=== PATIENT | male | born 1965 | race Caucasian/White ===

== ENCOUNTER 2022-02-06 09:51 | Outpatient (CLI) | payer OTHER ==
[2022-02-06] MEDS ORDERED: CHOL400T8 PO (10:27)
[2022-02-06] MEDS ORDERED: ATOR20TA66 PO (10:27)
[2022-02-06 10:44] LABS: BASOPHILS % (AUTO) 0.5 % (0-1); EOSINOPHILS # (AUTO) 0.2 X10'3 (0-0.9); EOSINOPHILS % (AUTO) 2.8 % (0-6); LYMPHOCYTES # (AUTO) 1.7 X10'3 (1.1-4.8); LYMPHOCYTES % (AUTO) 23.2 % (21-51); MEAN CORPUSCULAR HEMOGLOBIN 32.6 PG (27.0-31.0); MEAN CORPUSCULAR HGB CONC 34.7 g/dL (33.0-36.5); MEAN PLATELET VOLUME 7.6 FL (7.4-10.4); MONOCYTES # (AUTO) 0.9 X10'3 (0-0.9); MONOCYTES % (AUTO) 11.8 % (2-12); NEUTROPHILS # (AUTO) 4.6 X10'3 (1.8-7.7); NEUTROPHILS % (AUTO) 61.7 % (42-75); PRE OP HEMATOCRIT 47.6 % (42.0-52.0); PRE OP HEMOGLOBIN 16.5 g/dL (14.0-17.9); PRE OP PLATELET COUNT 298 X10'3 (140-440); RED BLOOD COUNT 5.07 X10'6 (4.70-6.10); RED CELL DISTRIBUTION WIDTH 13.4 % (11.5-14.5)
[2022-02-06 10:56] LABS: ALKALINE PHOSPHATASE 89 IU/L (46-116); BLOOD UREA NITROGEN 21 MG/DL (7-18); BUN/CREATININE RATIO 24.1 (5.4-32.0); CALCIUM 8.8 MG/DL (8.5-10.1); CHLORIDE 107 MMOL/L (99-107); CREATININE 0.87 MG/DL (0.60-1.10); PRE OP ALT 57 U/L (30-65); PRE OP ANION GAP 5 (8-16); PRE OP AST 36 U/L (10-37); PRE OP BILIRUB, TOTAL 0.3 MG/DL (0.0-1.0); PRE OP GLUCOSE 104 MG/DL (70-104); PRE OP POTASSIUM 4.2 MMOL/L (3.4-5.1); PRE OP SODIUM 137 MMOL/L (135-145); TOTAL CARBON DIOXIDE 24.7 MMOL/L (24-32); TOTAL PROTEIN 8.2 G/DL (6.4-8.2); eGFR > 90 ML/MIN
== END 2022-02-06 23:59 | disposition home or self-care (01) ==
LOC: LAB 09:51 → EDSTATUS 02-07 13:15
PROVIDERS: ATTEND Orthopaedic Surgery
DX: Z01.818 Encounter for other preprocedural examination (principal); M17.11 Unilateral primary osteoarthritis, right knee; S83.281A Other tear of lateral meniscus, current injury, right knee, initial encounter; Z20.822 Contact with and (suspected) exposure to COVID-19; X58.XXXA Exposure to other specified factors, initial encounter; Y92.89 Other specified places as the place of occurrence of the external cause; Y93.89 Activity, other specified; Y99.8 Other external cause status
CPT/HCPCS: 36415; 80053; 85025; 87635; 93005; C9803

== ENCOUNTER 2022-02-26 05:29 | Day surgery (SDC) | payer OTHER ==
[2022-02-19 13:35] LABS: BASOPHILS % (AUTO) 0.6 % (0-1); EOSINOPHILS # (AUTO) 0.2 X10'3 (0-0.9); EOSINOPHILS % (AUTO) 2.6 % (0-6); LYMPHOCYTES # (AUTO) 1.7 X10'3 (1.1-4.8); LYMPHOCYTES % (AUTO) 25.3 % (21-51); MEAN CORPUSCULAR HEMOGLOBIN 31.7 PG (27.0-31.0); MEAN CORPUSCULAR HGB CONC 33.9 g/dL (33.0-36.5); MEAN CORPUSCULAR VOLUME 93.4 FL (78-98); MEAN PLATELET VOLUME 7.6 FL (7.4-10.4); MONOCYTES # (AUTO) 0.8 X10'3 (0-0.9); MONOCYTES % (AUTO) 11.9 % (2-12); NEUTROPHILS # (AUTO) 4.1 X10'3 (1.8-7.7); NEUTROPHILS % (AUTO) 59.6 % (42-75); PRE OP HEMATOCRIT 47.9 % (42.0-52.0); PRE OP HEMOGLOBIN 16.2 g/dL (14.0-17.9); PRE OP PLATELET COUNT 286 X10'3 (140-440); RED BLOOD COUNT 5.13 X10'6 (4.70-6.10); RED CELL DISTRIBUTION WIDTH 13.1 % (11.5-14.5)
[2022-02-19 15:01] LABS: ALBUMIN 3.7 G/DL (3.4-5.0); ALBUMIN/GLOBULIN RATIO 0.9 (1.1-1.5); ALKALINE PHOSPHATASE 81 IU/L (46-116); BLOOD UREA NITROGEN 14 MG/DL (7-18); CALCIUM 9.2 MG/DL (8.5-10.1); CHLORIDE 103 MMOL/L (99-107); CREATININE 1.08 MG/DL (0.60-1.10); PRE OP ALT 41 U/L (30-65); PRE OP ANION GAP 10 (8-16); PRE OP AST 24 U/L (10-37); PRE OP BILIRUB, TOTAL 0.4 MG/DL (0.0-1.0); PRE OP GLUCOSE 100 MG/DL (70-104); PRE OP POTASSIUM 3.9 MMOL/L (3.4-5.1); PRE OP SODIUM 139 MMOL/L (135-145); TOTAL CARBON DIOXIDE 26.1 MMOL/L (24-32); TOTAL PROTEIN 7.6 G/DL (6.4-8.2); eGFR 71 ML/MIN
[2022-02-26] VITALS (7 sets, daily range): BP systolic 127–141; BP diastolic 79–89
[~2022-02-26] VITALS: Ht 180.3 cm; Wt 118.2 kg
[~2022-02-26 05:29] MED LIST: ATOR20TA66 PO; CHOL400T8 PO; ringers solution, lacted 1,000 ML IV SCH
[2022-02-26] MEDS ORDERED: famotidine 20mg tablet PO ONE (05:30)
[2022-02-26] MEDS ORDERED: cefazolin/dext.iso 2gm/50ml IV ONE (05:30)
[2022-02-26] MEDS ORDERED: vancomycin/NS 1 GM in NS 250 ML IV ONE (05:30)
--- NOTE | 2022-02-26 05:45 | NUR ---
PT PREPPED FOR SURGERY, IV STARTED WITHOUT DIFFICULTY, VANCOMYCIN STARTED. BILATERAL FEET WARM AND DRY TO TOUCH, SENSATION INTACT, DORSAL PEDIS PULSES PALPABLE BILATERALLY,
[2022-02-26] MEDS ORDERED: BUPIVAcaine 0.5% inj/PF 30 ML ONE (06:52)
[2022-02-26] MEDS ORDERED: triamcinolone acetonide 40mg/ml inj ONE ×2 (06:53→08:15)
[2022-02-26] MEDS ORDERED: sevoflurane 250ml liquid IH ONE (07:20)
[2022-02-26] MEDS ORDERED: dexamethasone sod phosphate 10mg/ml inj ONE (07:20)
[2022-02-26] MEDS ORDERED: midazolam 1 mg/ML 2ml injection ONE (07:29)
[2022-02-26] MEDS ORDERED: FENTANYL CITRATE/PF 50 MCG/1 ML VIAL ONE (07:30)
[2022-02-26] MEDS ORDERED: propofol inj 20 ML IV ONE (07:36)
[2022-02-26] MEDS ORDERED: LIDOcaine 2% (20mg/ml) 5ml vial ONE (07:36)
[2022-02-26] MEDS ORDERED: ondansetron/PF 4mg/2ml inj ONE (07:37)
[2022-02-26] MEDS ORDERED: morphine 2 MG/ML inj. syringe IV PRN (08:10)
[2022-02-26] MEDS ORDERED: ondansetron/PF 4mg/2ml inj IV PRN (08:10)
[2022-02-26] MEDS ORDERED: proCHLORperazine 10 MG/2 ml inj IV PRN (08:10)
[2022-02-26] MEDS ORDERED: morphine 4 MG/ML inj SYRINge IV PRN (08:10)
[2022-02-26] MEDS ORDERED: ringers solution, lacted 1,000 ML IV SCH (08:10)
[2022-02-26] MEDS ORDERED: meperidine/PF 25mg/ml syringe IV PRN ×3 (08:10)
[2022-02-26] MEDS ORDERED: BUPIVAcaine 0.5% inj/PF 30 ml vial IJ ONE (08:15)
--- NOTE | 2022-02-26 08:38 | NUR ---
Received from OR via [facility] , accompanied by Anesthesiologist MIKE and report given by Anesthesiolgist. PATIENT WITH 20G PIV IN LEFT HAND RUNNING LR AT 100. DENIES PAIN. BIAS WRAP TO RIGHT KNEE. ALL CDI. VSS. PATIENT DENIES PAIN AT THIS TIME. Addendum: 02/26/22 at 0844 by Terry Marc RN, RN Amended: Links added.
--- NOTE | 2022-02-26 09:28 | NUR ---
ALL DISCHARGE CRITERIA HAS BEEN MET. VSS, PAIN AT A TOLERABLE LEVEL, ABLE TO SAFELY AMBULATE AND TRANSFER SELF. IV TAKEN OUT WITHOUT ANY COMPLICATIONS. ALL DISCHARGE INSTRUCTIONS COVERED WITH PATIENT AND ALL QUESTIONS ANSWERED. PATIENT TAKEN OUT VIA WHEELCHAIR TO PERSONAL VEHICLE WHERE FAMILY/FRIEND DROVE PATIENT HOME ENCOURAGED ELEVATION AND ICE. VSS. DROVE PATIENT HOME VIA PRIVATE VEHICLE. Addendum: 02/26/22 at 0940 by Terry Marc RN, RN Amended: Links added.
== END 2022-02-26 09:28 | disposition home or self-care (01) ==
LOC: PAS 05:29
PROVIDERS: ATTEND Orthopaedic Surgery
DX: S83.271A Complex tear of lateral meniscus, current injury, right knee, initial encounter (principal); S83.241A Other tear of medial meniscus, current injury, right knee, initial encounter; M17.11 Unilateral primary osteoarthritis, right knee; E78.5 Hyperlipidemia, unspecified; E66.01 Morbid (severe) obesity due to excess calories; Z68.36 Body mass index [BMI] 36.0-36.9, adult; Z79.899 Other long term (current) drug therapy; Z98.890 Other specified postprocedural states; Z86.16 Personal history of COVID-19; X58.XXXA Exposure to other specified factors, initial encounter; Y92.89 Other specified places as the place of occurrence of the external cause; Y93.89 Activity, other specified; Y99.8 Other external cause status
CPT/HCPCS: 29873; 29879; 29880; 36415; 80053; 82948; 85025; J0690; J1100; J2250; J2405; J2704; J3010; J3301; J3370; J3490; J7120; S0020; Z7506; Z7508; Z7512; A4215; A4618; A6250; A6449; A7000